=== PATIENT | male | born 1945 | race Two or more races ===

== ENCOUNTER 2019-08-15 07:35 | Outpatient (CLI) | payer OTHER | END 2019-08-15 08:10 | disposition home or self-care (01) | LOC: NUCLEAR 07:35 | PROVIDERS: ATTEND Internal Medicine Cardiovascular Disease | DX: I25.6 Silent myocardial ischemia (principal); I20.8 Other forms of angina pectoris; I50.9 Heart failure, unspecified | CPT/HCPCS: 78452; 93017; A9500; J0153 ==